=== PATIENT | male | born 1975 | race Caucasian/White ===

== ENCOUNTER 2023-06-14 14:54 | Emergency (ER) | payer MEDICAID ==
[~2023-06-14] VITALS: Ht 182.9 cm; Wt 104.3 kg
[2023-06-14] MEDS: ACETAMINOPHEN 325 MG TABLET PO ONE (17:00)
[2023-06-14] MEDS: TDAP [DIPH/PERTUSSIS/TET] 0.5 ML VIAL IM ONE (17:00)
[2023-06-14] MEDS: KETOROLAC TROMETHAMINE 15 MG/ML VIAL IM ONE (17:00)
[2023-06-14] MEDS: BACI/NEOM/POLY B OINT PKT 1 UDPKT PACKET TP ONE (17:00)
[2023-06-14] MEDS ORDERED: IBUP-1955 PO (17:01)
[2023-06-14] MEDS ORDERED: ACETAMINOPHEN 325 MG TABLET ONE (17:03)
[2023-06-14] MEDS ORDERED: KETOROLAC TROMETHAMINE 15 MG/ML VIAL ONE (17:03)
[2023-06-14] MEDS ORDERED: TDAP [DIPH/PERTUSSIS/TET] 0.5 ML VIAL IM ONE (17:03)
[2023-06-14 17:41] VITALS: BP 161/78; TEMP 98.1; O2SAT 100
== END 2023-06-14 17:42 | disposition home or self-care (01) ==
LOC: ER 14:56
DX: S60.221A Contusion of right hand, initial encounter (principal); S30.810A Abrasion of lower back and pelvis, initial encounter; S09.90XA Unspecified injury of head, initial encounter; I10 Essential (primary) hypertension; V19.9XXA Pedal cyclist (driver) (passenger) injured in unspecified traffic accident, initial encounter; Y93.89 Activity, other specified; Y92.89 Other specified places as the place of occurrence of the external cause; Y99.8 Other external cause status
CPT/HCPCS: 99284; 96372; 90471; 90715; 73130; 73110; J1885